=== PATIENT | male | born 1950 | race Caucasian/White ===

== ENCOUNTER 2023-09-04 15:43 | Observation (INO) ==
[2023-09-04 16:44] LABS: ABS Lymphocytes 0.7 10^3/uL (1.0-4.8); ABS Monocytes 0.7 10^3/uL (0.0-1.1); ABS Neutrophils 3.5 10^3/uL (1.5-7.6); Eosinophil % 0.8 %; Hemoglobin 11.9 g/dL (13.2-16.3); Lymphocyte % 14.5 %; Mean Corpuscular Hemoglobin 35.1 pg (27-33); Mean Corpuscular Hgb Conc 34.1 g/dL (31-36); Mean Corpuscular Volume 102.9 fL (80-97); Mean Platelet Volume 8.4 fL (7.5-11.2); Nucleated Red Blood Cells % 0.1 %/100WBC (0.0-0.8); Platelet Count 105 10^3/uL (150-450); Red Cell Distribution Width 15.7 % (12-17)
[2023-09-04 16:54] LABS: ALT 30 U/L (7-52); AST 46 U/L (13-39); Albumin 2.4 g/dL (3.2-5.2); Albumin/Globulin Ratio 0.7 (1-3); Alkaline Phosphatase 248 U/L (35-149); Anion Gap 9 mmol/L (2-16); Blood Urea Nitrogen 20 mg/dL (6-24); CO2 Carbon Dioxide 27 mmol/L (22-32); Calcium 8.7 mg/dL (8.6-10.3); Chloride 108 mmol/L (101-111); Creatinine, Serum 1.28 mg/dL (0.67-1.17); Globulin 3.6 g/dL (2-4); Glucose 150 mg/dL (70-100); Magnesium 1.9 mg/dL (1.9-2.7); Potassium 3.8 mmol/L (3.5-5.0); Sodium 144 mmol/L (135-145); Total Bilirubin 4.8 mg/dL (0.2-1.0); eGFR CKD-EPI 59.5 (>60)
[2023-09-04 16:59] LABS: High Sens Troponin Baseline 7 pg/mL (<20)
[2023-09-04] MEDS ORDERED: Thiamine 100 MG/ML 2 ml VIAL 100 MG, Folic Acid IV 1 MG, Multiple Vitamin IV ADULT 10 M... IV ONE (17:00)
[2023-09-04 17:02] LABS: Alcohol, S < 13 mg/dL (<13)
[2023-09-04 17:17] LABS: TSH Ultra Thyroid Stim Horm 4.12 mcIU/mL (0.34-5.60)
[2023-09-04 17:37] LABS: Creatine Kinase 53 U/L (10-223)
[2023-09-04 17:54] LABS: High Sensitivity Troponin 1 Hr 6 pg/mL (<20)
[2023-09-04 17:56] LABS: Urine Appearance Clear; Urine Bilirubin Negative (Negative); Urine Blood 3+ (Negative); Urine Color Yellow; Urine Glucose Negative (Negative); Urine Ketones Negative (Negative); Urine Nitrite Negative (Negative); Urine Protein Negative (Negative); Urine Specific Gravity 1.006 (1.002-1.030); Urine Urobilinogen Positive (Negative)
[2023-09-04 18:14] LABS: Urine Bacteria Absent (Absent); Urine Benzodiazepine Screen None Detected (None Detect); Urine Cannabinoids Screen None Detected (None Detect); Urine Opiates Screen None Detected (None Detect); Urine Red Blood Cell 3+(>10/hpf) (Absent); Urine White Blood Cell Trace(0-5/hpf) (Absent)
[2023-09-04] MEDS ORDERED: Thiamine 100 MG/ML 2 ml VIAL (200 mg) IM ONE (18:47)
[2023-09-04] MEDS ORDERED: Magnesium Sulfate 2 gm BAG 2 GM/50 ML BAG IVPB ONE (18:49)
[2023-09-04] MEDS ORDERED: LORazepam 2 mg VIAL 1 ml IV PUSH SCH (19:00)
[2023-09-04] MEDS: NS 0.9% 1000 ml BAG 1,000 ML IV SCH (20:32)
[2023-09-04 20:37] LABS: Direct Bilirubin 1.6 mg/dL (0.03-0.18); Indirect Bilirubin 3.2 mg/dL (0.3-1.0)
[2023-09-04] MEDS: Thiamine 100 MG/ML 2 ml VIAL 500 MG in NS 0.9% 250 ml 250 ML IV SCH (21:04)
[2023-09-04] MEDS: Enoxaparin 40 MG/0.4 ML SYR SUBCUT SCH (21:06)
[2023-09-04 21:14] LABS: INR 1.46 (0.83-1.13)
[2023-09-04] MEDS: Lactulose 30 ml UDC PO SCH (23:58)
[2023-09-05 06:28] LABS: ABS Eosinophils 0.1 10^3/uL (0.0-0.5); ABS Lymphocytes 1.1 10^3/uL (1.0-4.8); ABS Monocytes 0.7 10^3/uL (0.0-1.1); ABS Neutrophils 3.9 10^3/uL (1.5-7.6); Eosinophil % 1.5 %; Hematocrit 33.4 % (38-53); Hemoglobin 11.3 g/dL (13.2-16.3); Lymphocyte % 18.1 %; Mean Corpuscular Hemoglobin 34.9 pg (27-33); Mean Corpuscular Volume 102.9 fL (80-97); Nucleated Red Blood Cells % 0.1 %/100WBC (0.0-0.8); Platelet Count 102 10^3/uL (150-450); Red Blood Count 3.25 10^6/uL (4.06-5.63); Red Cell Distribution Width 15.7 % (12-17); White Blood Count 5.8 10^3/uL (3.6-10.2)
[2023-09-05 06:46] LABS: Creatinine, Serum 1.24 mg/dL (0.67-1.17); Magnesium 2.1 mg/dL (1.9-2.7); Potassium 3.6 mmol/L (3.5-5.0); eGFR CKD-EPI 61.8 (>60)
[2023-09-05] MEDS: NS 0.9% 1000 ml BAG 1,000 ML IV SCH (07:20)
[2023-09-05 11:34] LABS: INR 1.43 (0.83-1.13)
[2023-09-05] MEDS ORDERED: Iohexol 350 (CONTRAST) 500 ML MDV IV ONE (12:06)
[2023-09-05 12:36] LABS: Albumin 2.3 g/dL (3.2-5.2); Albumin/Globulin Ratio 0.6 (1-3); Direct Bilirubin 2.7 mg/dL (0.03-0.18); Globulin 3.6 g/dL (2-4); Indirect Bilirubin 3.4 mg/dL (0.3-1.0); Total Bilirubin 6.1 mg/dL (0.2-1.0); Total Protein 5.9 g/dL (6.4-8.9)
[2023-09-05] MEDS: Multivitamins/Minerals TAB PO SCH (13:31)
[2023-09-05] MEDS: Lactulose 30 ml UDC PO SCH ×3 (13:33→21:36)
[2023-09-05] MEDS: Thiamine 100 MG/ML 2 ml VIAL 500 MG in NS 0.9% 250 ml 250 ML IV SCH ×3 (13:36→21:43)
[2023-09-05] MEDS: Enoxaparin 40 MG/0.4 ML SYR SUBCUT SCH (21:36)
[2023-09-06 09:12] LABS: INR 1.45 (0.83-1.13)
[2023-09-06 09:16] LABS: Albumin 2.3 g/dL (3.2-5.2); Albumin/Globulin Ratio 0.7 (1-3); Calcium 8.2 mg/dL (8.6-10.3); Creatinine, Serum 1.41 mg/dL (0.67-1.17); Direct Bilirubin 2.6 mg/dL (0.03-0.18); Globulin 3.4 g/dL (2-4); Indirect Bilirubin 3.1 mg/dL (0.3-1.0); Magnesium 1.9 mg/dL (1.9-2.7); Potassium 3.5 mmol/L (3.5-5.0); Total Bilirubin 5.7 mg/dL (0.2-1.0); Total Protein 5.7 g/dL (6.4-8.9); eGFR CKD-EPI 52.9 (>60)
[2023-09-06] MEDS: Lactulose 30 ml UDC PO SCH ×2 (09:36→09:38)
[2023-09-06] MEDS: Multivitamins/Minerals TAB PO SCH (09:36)
[2023-09-06] MEDS: Thiamine 100 MG/ML 2 ml VIAL 500 MG in NS 0.9% 250 ml 250 ML IV SCH (09:41)
[2023-09-06 10:32] VITALS: BP 111/52
[2023-09-06] MEDS ORDERED: Potassium EFFERVES 25 meq TAB PO ONE (12:44)
== END 2023-09-06 16:00 | disposition home or self-care (01) ==
LOC: ED 15:43 → EDHOLD 15:43 → SUATTDRO 18:43 → MEDTELE 21:29
PROVIDERS: ADMIT Student in an Organized Health Care Education/Training Program; ATTEND Internal Medicine

== ENCOUNTER 2023-10-20 01:33 | Inpatient (IN) ==
[2023-10-20 02:02] LABS: Hematocrit 40.6 % (38-53); Hemoglobin 12.7 g/dL (13.2-16.3); INR 2.81 (0.83-1.13); Mean Corpuscular Hemoglobin 32.4 pg (27-33); Mean Corpuscular Hgb Conc 31.1 g/dL (31-36); Mean Corpuscular Volume 104.2 fL (80-97); Mean Platelet Volume 9.7 fL (7.5-11.2); Platelet Count 214 10^3/uL (150-450); Red Cell Distribution Width 17.9 % (12-17)
[2023-10-20 02:12] LABS: Alcohol, S < 13 mg/dL (<13)
[2023-10-20 02:31] LABS: ABS Basophils 0.1 10^3/uL (0.0-0.1); ABS Lymphocytes 0.9 10^3/uL (1.0-4.8); ABS Monocytes 0.4 10^3/uL (0.0-1.1); ABS Neutrophils 48.5 10^3/uL (1.5-7.6); ABS Nucleated RBC 0.06 10^3/ul; Eosinophil % 0.1 %; Lymphocyte % 1.7 %; Nucleated Red Blood Cells % 0.1 %/100WBC (0.0-0.8); RBC Morphology Normal (Normal)
[2023-10-20 02:34] LABS: ALT 68 U/L (7-52); AST 194 U/L (13-39); Albumin 1.7 g/dL (3.2-5.2); Albumin/Globulin Ratio 0.4 (1-3); Alkaline Phosphatase 209 U/L (35-149); Anion Gap 26 mmol/L (2-16); Blood Urea Nitrogen 75 mg/dL (6-24); C Reactive Protein 170.82 mg/L (<8.01); CO2 Carbon Dioxide 10 mmol/L (22-32); Calcium 9.5 mg/dL (8.6-10.3); Chloride 96 mmol/L (101-111); Creatinine, Serum 3.71 mg/dL (0.67-1.17); Globulin 4.1 g/dL (2-4); Glucose 46 mg/dL (70-100); Potassium 4.8 mmol/L (3.5-5.0); Sodium 132 mmol/L (135-145); Total Bilirubin 5.4 mg/dL (0.2-1.0); Total Protein 5.8 g/dL (6.4-8.9); eGFR CKD-EPI 16.6 (>60)
[2023-10-20] MEDS: Dextrose 50% Syringe 50 ml 25 GM/50 ML SYRINGE IV PUSH ONE (02:44)
[2023-10-20] MEDS ORDERED: Norepinephrine 4 MG/250mL D5W 4,000 MCG/250 ML BAG IV ONE (03:11)
[2023-10-20] MEDS: Norepinephrine 4 MG/250mL D5W 4,000 MCG/250 ML BAG IV SCH ×2 (03:20→06:21)
[2023-10-20 03:25] LABS: Body Fluid Total Nucleated 6051 /mcL
[2023-10-20 03:28] LABS: PCO2 Arterial 21 mmHg (35-45); PO2 Arterial 145 mmHg (80-100)
[2023-10-20 03:28] LABS: Body Fluid Appearance Cloudy; Body Fluid Color Amber; Body Fluid Source Peritonial Fluid
[2023-10-20] MEDS: Piperacillin/Tazobac 3.375 BAG 3.375 GM/100 ML BAG IV ONE (03:36)
[2023-10-20] MEDS ORDERED: Vancomycin per Pharmacy 1 EA NOTE FOLLOW UP SCH (04:00)
[2023-10-20] MEDS ORDERED: Zosyn per Pharmacy NOTE FOLLOW UP SCH (04:00)
[2023-10-20 04:17] LABS: Creatine Kinase 212 U/L (10-223)
[2023-10-20 04:24] LABS: Body Fluid Mono 10 %; Body Fluid Total Cells Counted 200
[2023-10-20] MEDS: Vancomycin 1,500 MG in NS 0.9% 250 ml 250 ML IVPB ONE (04:42)
[2023-10-20] MEDS: Morphine 2 MG/ML SYRINGE IV ONE ×2 (05:30→06:29)
[2023-10-20] MEDS: Albumin Human 25% 25 GM/100 ML BTL IV ONE (05:45)
[2023-10-20] MEDS ORDERED: Morphine 2 MG/ML SYRINGE ONE (05:57)
[2023-10-20] MEDS ORDERED: Dextrose 50% Syringe 50 ml 25 GM/50 ML SYRINGE IV PUSH PRN (07:27)
[2023-10-20] MEDS ORDERED: Albumin Human 25% 100 GM/400 ML BTL IV ONE (07:39)
[2023-10-20] MEDS ORDERED: PHENYLEPHRINE DRIP IVPREMIX 50 MG/250 ML BAG IV SCH (08:00)
[2023-10-20] MEDS: Albumin Human 25% 25 GM/100 ML BTL IV SCH (08:21)
[2023-10-20] MEDS: HYDROmorphone 0.5 MG/0.5 ML SYRINGE IV SLOW PU PRN ×2 (08:24→09:35)
[2023-10-20] MEDS: Hydrocortisone INJ 100 MG/2ML 2 ML VIAL IV SCH (08:28)
[2023-10-20] MEDS: Pantoprazole VIAL 40 MG VIAL IV SCH (08:28)
[2023-10-20] MEDS: VASOPRESSIN IVPREMIX BTL 40 UNIT/100 ML BTL IV SCH (08:34)
[2023-10-20] MEDS ORDERED: Ondansetron 4 mg VIAL 2 MG/ML 2 ml VIAL IV PRN (09:02)
[2023-10-20] MEDS: Octreotide Acetate 500 MCG in NS 0.9% 100 ml BAG 100 ML IV SCH (10:26)
[2023-10-20] MEDS: Phytonadione IV (Adult) 5 MG in NS 0.9% 50 ML 50 ML IV ONE (10:29)
[2023-10-20] MEDS ORDERED: Midazolam 10 mg/10 ml VIAL 1 mg/ml 10 ml VIAL (10 mg) ONE (11:26)
[2023-10-20] MEDS ORDERED: Etomidate 40 mg/20 ml (2 MG/ML) 20 ml VIAL (40 mg) ONE (11:26)
[2023-10-20] MEDS: Rocuronium 50 mg VIAL 10 mg/ml 5 ml VIAL (50 mg) ONE (11:36)
[2023-10-20] MEDS: Midazolam PREMIXBAG 1 MG/ML NS 100 ML IV SCH (11:36)
[2023-10-20] MEDS: Phenylephrine 40 mcg/mL 10mL (400mcg) SYRINGE ONE (11:36)
[2023-10-20] MEDS: Sodium Bicarbonate 8.4% SYR 50 ml SYRINGE IV ONE (15:06)
[2023-10-20] MEDS: ZOSYN 3.375 GM Q12H per EXTENDED INFUSION IV SCH (15:07)
[2023-10-20 15:48] LABS: Urine Appearance Cloudy; Urine Bilirubin Negative (Negative); Urine Blood 2+ (Negative); Urine Color Yellow; Urine Glucose Negative (Negative); Urine Ketones Negative (Negative); Urine Nitrite Negative (Negative); Urine Protein Negative (Negative); Urine Specific Gravity 1.005 (1.002-1.030); Urine Urobilinogen Negative (Negative)
[2023-10-20 15:53] LABS: Urine Bacteria 1+ (Absent); Urine Red Blood Cell 2+(6-10/hpf) (Absent); Urine Squamous Epithelial Cell Present (Absent); Urine White Blood Cell 3+(>20/hpf) (Absent)
[2023-10-20 20:23] VITALS: BP 34/17
[2023-10-20] MEDS ORDERED: EPINEPHrine SYR 0.1MG/ML 10 ml SYRINGE IV ONE (22:50)
[2023-10-20] MEDS ORDERED: Sodium Bicarbonate 8.4% SYR 50 ml SYRINGE ONE (22:50)
[2023-10-21] MEDS ORDERED: Vancomycin Random Level NOTE FOLLOW UP ONE (06:00)
[2023-10-22] MEDS ORDERED: Vancomycin 1000 MG in NS 0.9% 250 ML IVPB SCH (06:30)
[2023-10-22 10:04] LABS: BF PH 7.5
[2023-10-22 11:09] LABS: Albumin, BF 0.4 g/dL; Fluid Type, Albumin PERITONEAL; Fluid Type, Protein, Total PERITONEAL; Glucose, BF 7 mg/dL; Total Protein, BF 1.3 g/dL
[2023-10-22 11:32] LABS: Lactate Dehydrogenase, BF 755 U/L
== END 2023-10-20 23:17 | disposition expired | DRG 371 ==
LOC: ED 01:33 → EDHOLD 06:58 → ICU 08:09
PROVIDERS: ADMIT Internal Medicine Pulmonary Disease; ATTEND Internal Medicine